=== PATIENT | male | born 1990 | race Hispanic/Latino ===

== ENCOUNTER 2017-07-09 15:43 | Emergency (ER) | payer OTHER ==
[2017-07-09] MEDS ORDERED: LIDOCAINE 1% 20 ML MDV ONE (17:35)
--- NOTE | 2017-07-09 17:52 | ER ---
Nurse's Notes [facility] Name: Clemente Ovalles Jr Age: 26 yrs Sex: Male : 1990 Arrival Date: 07/09/2017 Time: 15:49 Bed 9 Private MD: Diagnosis: Laceration without foreign body of forearm Presentation: 07/09 15:57 Presenting complaint: Patient states: Laceration to top of left forearm that occurred 1 aj hour [employer], no bleeding noted. Transition of care: patient was not received from another setting of care. Complicating Factors: There are no complicating factors for this patient. Onset of symptoms was July 09, 2017. Care prior to arrival: None. 15:57 Method Of Arrival: Ambulatory aj 15:57 Acuity: CORINE 4 aj 18:05 Initial Sepsis Screen: Does the patient meet any 2 criteria? No. Patient's initial iw sepsis screen is negative. Does the patient have a suspected source of infection? No. Patient's initial sepsis screen is negative. Triage Assessment: 15:58 General: Appears in no apparent distress. comfortable, Behavior is calm, cooperative, aj appropriate for age. Pain: Denies pain. Neuro: Level of Consciousness is awake, alert, obeys commands, Oriented to person, place, time, situation, Appropriate for age. Respiratory: Airway is patent Respiratory effort is even, unlabored, Respiratory pattern is regular, symmetrical. Derm: Skin is intact, is healthy with good turgor, Skin is pink, warm \T\ dry. normal. Injury Description: Laceration sustained to dorsal aspect of left forearm is clean, 0.5 to 2.5 cm long, not bleeding. Historical: - Allergies: 15:58 No Known Allergies; aj - Home Meds: 15:58 None [Active]; aj - PMHx: 15:58 None; aj - PSHx: 15:58 None; aj - Immunization history:: Adult Immunizations unknown, Last tetanus immunization: unknown. - Social history:: Smoking status: Patient uses tobacco products, smokes one-half pack cigarettes per day. Screenin:02 Abuse screen: Denies threats or abuse. Denies injuries from another. Nutritional iw screening: No deficits noted. Tuberculosis screening: No symptoms or risk factors identified. Fall Risk None identified. Assessment: 17:40 General: Appears in no apparent distress. comfortable. Pain: Complains of pain in iw dorsal aspect of left forearm. Neuro: Level of Consciousness is awake, alert, obeys commands. Musculoskeletal: Range of motion: intact in all extremities. Injury Description: Laceration sustained to dorsal aspect of left forearm is jagged, 0.5 to 2.5 cm long. Vital Signs: 15:58 BP 136 / 81; Pulse 96; Resp 16; Temp 97.6; Pulse Ox 97% on R/A; Weight 165.56 kg; aj Height 5 ft. 11 in. (180.34 cm); 15:58 Body Mass Index 50.91 (165.56 kg, 180.34 cm) aj ED Course: 15:49 Patient arrived in ED. mr 15:57 Triage completed. aj 15:58 Arm band placed on right wrist. Patient placed in waiting room, Patient notified of aj wait time. 17:19 Cornelius Garber PA is PHCP. jrEdenilson 17:19 Narendra Lozoya MD is Attending Physician. jr8 17:45 Assist provider with laceration repair on dorsal aspect of left forearm that was 2.5 iw cm. or less using sutures. Set up tray. Performed by Cornelius SIMONS. Patient did not have IV access during this emergency room visit. 17:49 Kristina Obrien, IGNACIA is Primary Nurse. iw 18:05 Patient has correct armband on for positive identification. iw Administered Medications: No medications were administered Outcome: 17:52 Discharge ordered by . jrEdenilson 18:03 Discharged to home ambulatory, with friend. iw 18:03 Condition: good 18:03 Discharge instructions given to patient, Instructed on discharge instructions, follow up and referral plans. wound care, Demonstrated understanding of instructions, follow-up care, wound care. 18:05 Patient left the ED. iw Signatures: Lucia Ybarra, RN Adelina Viveros mr Kristina Obrien, Cornelius Blum RN, PA PA jr8 Corrections: (The following items were deleted from the chart) 16:04 15:54 Patient's name was called from ER lobby. No response. aj kelly
--- NOTE | 2017-07-09 17:52 | EDPHYS ---
Physician Documentation [facility] Name: Clemente Ovalles Jr Age: 26 yrs Sex: Male : 1990 Arrival Date: 07/09/2017 Time: 15:49 Bed 9 Private MD: ED Physician Narendra Lozoya HPI: 07/09 17:47 This 26 yrs old Male presents to ER via Ambulatory with complaints of jr8 Laceration To Arm. 17:47 The patient has a laceration related to: working, from a sharp metal object, occurred jr8 at work, and there are no complicating factors. The laceration(s) is(are) located on the dorsal aspect of left forearm. Onset: The symptoms/episode began/occurred acutely, today. Associated signs and symptoms: The patient has no apparent associated signs or symptoms. The patient has not experienced similar symptoms in the past. The patient has not recently seen a physician. Historical: - Allergies: 15:58 No Known Allergies; aj - Home Meds: 15:58 None [Active]; aj - PMHx: 15:58 None; aj - PSHx: 15:58 None; aj - Immunization history:: Adult Immunizations unknown, Last tetanus immunization: unknown. - Social history:: Smoking status: Patient uses tobacco products, smokes one-half pack cigarettes per day. ROS: 17:47 Eyes: Negative for injury, pain, redness, and discharge, ENT: Negative for injury, jr8 pain, and discharge, Neck: Negative for injury, pain, and swelling, Cardiovascular: Negative for chest pain, palpitations, and edema, Respiratory: Negative for shortness of breath, cough, wheezing, and pleuritic chest pain, Abdomen/GI: Negative for abdominal pain, nausea, vomiting, diarrhea, and constipation, Back: Negative for injury and pain, MS/Extremity: Negative for injury and deformity, Neuro: Negative for headache, weakness, numbness, tingling, and seizure. 17:47 Skin: Positive for laceration(s), of the dorsal aspect of left forearm. Exam: 17:47 Eyes: Pupils equal round and reactive to light, extra-ocular motions intact. Lids and jr8 lashes normal. Conjunctiva and sclera are non-icteric and not injected. Cornea within normal limits. Periorbital areas with no swelling, redness, or edema. ENT: Nares patent. No nasal discharge, no septal abnormalities noted. Tympanic membranes are normal and external auditory canals are clear. Oropharynx with no redness, swelling, or masses, exudates, or evidence of obstruction, uvula midline. Mucous membranes moist. Neck: Trachea midline, no thyromegaly or masses palpated, and no cervical lymphadenopathy. Supple, full range of motion without nuchal rigidity, or vertebral point tenderness. No Meningismus. Cardiovascular: Regular rate and rhythm with a normal S1 and S2. No gallops, murmurs, or rubs. Normal PMI, no JVD. No pulse deficits. Respiratory: Lungs have equal breath sounds bilaterally, clear to auscultation and percussion. No rales, rhonchi or wheezes noted. No increased work of breathing, no retractions or nasal flaring. Abdomen/GI: Soft, non-tender, with normal bowel sounds. No distension or tympany. No guarding or rebound. No evidence of tenderness throughout. Back: No spinal tenderness. No costovertebral tenderness. Full range of motion. MS/ Extremity: Pulses equal, no cyanosis. Neurovascular intact. Full, normal range of motion. Neuro: Awake and alert, GCS 15, oriented to person, place, time, and situation. Cranial nerves II-XII grossly intact. Motor strength 5/5 in all extremities. Sensory grossly intact. Cerebellar exam normal. Normal gait. 17:47 Skin: injury, laceration(s), the wound is approximately 2.5 cm(s), with a depth of .5 cm(s), of the dorsal aspect of left forearm, that can be described as no foreign body, linear, with mild bleeding. Vital Signs: 15:58 BP 136 / 81; Pulse 96; Resp 16; Temp 97.6; Pulse Ox 97% on R/A; Weight 165.56 kg; aj Height 5 ft. 11 in. (180.34 cm); 15:58 Body Mass Index 50.91 (165.56 kg, 180.34 cm) aj Laceration: 17:47 Wound Repair of 2.5cm ( 1.0in ) subcutaneous laceration to dorsal aspect of left jr8 forearm. Linear shaped.. Minimal bleeding noted.. Distal neuro/vascular/tendon intact. Anesthesia: Local anesthetic administered with 3 mls of 1% lidocaine. Wound prep: Extensive cleansing with betadine, Wound explored extensively. Skin closed with 3 4-0 Prolene using interrupted sutures and sterile technique. Patient tolerated well. MDM: 17:19 Patient medically screened. jr8 17:47 Data reviewed: vital signs, nurses notes, and as a result, I will discharge patient. jr8 Data interpreted: Pulse oximetry: on room air is 97 %. Interpretation: normal. Counseling: I had a detailed discussion with the patient and/or guardian regarding: the historical points, exam findings, and any diagnostic results supporting the discharge/admit diagnosis, the need for outpatient follow up, a family practitioner, to return to the emergency department if symptoms worsen or persist or if there are any questions or concerns that arise at home. Administered Medications: No medications were administered Disposition: 18:39 Co-signature as Attending Physician, Narendra Lozoya MD. rn Disposition: 07/09/17 17:52 Discharged to Home. Impression: Laceration without foreign body of forearm. - Condition is Stable. - Discharge Instructions: Laceration Care, Adult. - Work release form, Medication Reconciliation Form, Thank You Letter, Antibiotic Education, Prescription Opioid Use form. - Follow up: Private Physician; When: 7 - 10 days; Reason: Wound Recheck, Recheck today's complaints, Continuance of care, Staple/Suture removal, Re-evaluation by your physician. - Problem is new. - Symptoms have improved. Signatures: Lucia Ybarra RN RN aj Williams, Irene, RN RN iw Nieto, Roman, MD MD rn Roszak, Josh, PA PA jr8 Corrections: (The following items were deleted from the chart) 18:05 17:52 07/09/2017 17:52 Discharged to Home. Impression: Laceration without foreign body iw of forearm. Condition is Stable. Forms are Medication Reconciliation Form, Thank You Letter, Antibiotic Education, Prescription Opioid Use. Follow up: Private Physician; When: 7 - 10 days; Reason: Wound Recheck, Recheck today's complaints, Continuance of care, Staple/Suture removal, Re-evaluation by your physician. Problem is new. Symptoms have improved. jr8
[2017-07-09] MEDS ORDERED: TETANUS & DIPHTHERIA TOX,ADULT 0.5 ML VIAL ONE (17:54)
== END 2017-07-09 18:05 | disposition home or self-care (01) ==
LOC: ER 15:43
PROC: 0JQH0ZZ Repair Left Lower Arm Subcutaneous Tissue and Fascia, Open Approach (ICD-10-PCS; principal; 2017-07-09)
DX: S51.812A Laceration without foreign body of left forearm, initial encounter (principal); W26.8XXA Contact with other sharp object(s), not elsewhere classified, initial encounter; Y93.89 Activity, other specified; Y92.89 Other specified places as the place of occurrence of the external cause; Y99.8 Other external cause status; F17.210 Nicotine dependence, cigarettes, uncomplicated
CPT/HCPCS: 90714; 99283

== ENCOUNTER 2017-07-16 07:04 | Emergency (ER) | payer OTHER ==
--- NOTE | 2017-07-16 07:32 | ER ---
Nurse's Notes [facility] Name: Clemente Ovalles Jr Age: 26 yrs Sex: Male : 1990 Arrival Date: 07/16/2017 Time: 07:08 Bed 5 Private MD: None, None Diagnosis: Encounter for removal of sutures Presentation: 07/16 07:10 Presenting complaint: Patient states: need for suture removal. Pt states "I got sutures aa5 here last ". Sutures noted to left FA. Transition of care: patient was not received from another setting of care. Onset of symptoms was July 16, 2017. Risk Assessment: Do you want to hurt yourself or someone else? Patient reports no desire to harm self or others. Initial Sepsis Screen: Does the patient meet any 2 criteria? No. Patient's initial sepsis screen is negative. Does the patient have a suspected source of infection? No. Patient's initial sepsis screen is negative. Care prior to arrival: None. 07:10 Method Of Arrival: Ambulatory aa5 07:10 Acuity: CORINE 4 aa5 Historical: - Allergies: 07:10 No Known Allergies; aa5 - PMHx: 07:10 None; aa5 - PSHx: 07:14 None; aa5 - Immunization history:: Adult Immunizations unknown. - Social history:: Smoking status: Patient uses tobacco products, smokes one-half pack cigarettes per day. - Ebola Screening: : No symptoms or risks identified at this time. Screenin:15 Abuse screen: Denies threats or abuse. Nutritional screening: No deficits noted. tw2 Tuberculosis screening: No symptoms or risk factors identified. Fall Risk None identified. Assessment: 07:14 General: Appears in no apparent distress. obese, Behavior is calm, cooperative, tw2 appropriate for age. Pain: Denies pain. Neuro: Level of Consciousness is awake, alert, obeys commands, Oriented to person, place, time, situation. Cardiovascular: Denies chest pain, shortness of breath, Capillary refill < 3 seconds Patient's skin is warm and dry. Respiratory: Airway is patent Respiratory effort is even, unlabored, Respiratory pattern is regular, symmetrical. GI: No signs and/or symptoms were reported involving the gastrointestinal system. : No signs and/or symptoms were reported regarding the genitourinary system. EENT: No signs and/or symptoms were reported regarding the EENT system. Derm: sutures to left FA, no S\\T\\S of infection. Musculoskeletal: Range of motion: intact in all extremities. 07:36 Reassessment: Patient appears in no apparent distress at this time. No changes from tw2 previously documented assessment. Patient and/or family updated on plan of care and expected duration. Pain level reassessed. Patient is alert, oriented x 3, equal unlabored respirations, skin warm/dry/pink. Vital Signs: 07:13 BP 115 / 65; Pulse 91; Resp 17; Temp 97.2; Pulse Ox 99% on R/A; tw2 ED Course: 07:08 Patient arrived in ED. mr 07:08 None, None is Private Physician. mr 07:10 Arm band placed on Patient placed in an exam room, on a stretcher. aa5 07:12 Triage completed. aa5 07:13 Vaishali Woodard, IGNACIA is Primary Nurse. tw2 07:15 Bed in low position. Pulse ox on. NIBP on. tw2 07:15 suture removal tray at bedside. Patient did not have IV access during this emergency tw2 room visit. 07:19 Mustapha Mishra MD is Attending Physician. kdr 07:25 Cornelius Garber PA is PHCP. jr8 19:36 Primary Nurse role handed off by Vaishali Woodard RN tw2 Administered Medications: No medications were administered Outcome: 07:32 Discharge ordered by . jr8 07:36 Discharged to home ambulatory. tw2 07:36 Condition: stable 07:36 Discharge instructions given to patient, Instructed on discharge instructions, follow up and referral plans. Demonstrated understanding of instructions, follow-up care. 07:36 Patient left the ED. tw2 Signatures: Mustapha Mishra MD MD kdr Rivera, Maria mr GonzalezFloridalma RN RN aa5 Cornelius Garber PA PA jr8 Vaishali Woodard RN RN tw2
--- NOTE | 2017-07-16 07:32 | EDPHYS ---
Physician Documentation [facility] Name: Clemente Ovalles Jr Age: 26 yrs Sex: Male : 1990 Arrival Date: 07/16/2017 Time: 07:08 Bed 5 Private MD: None, None ED Physician Mustapha Mishra HPI: 07/16 07:30 This 26 yrs old Male presents to ER via Ambulatory with complaints of Suture jr8 Removal. 07:30 The patient has sutures on the left arm. Previous treatment: The patient was initially jr8 treated 7 day(s) ago. Sutures/maxx progress: The patient has no c/o's. The wound is well-healing with no redness, swelling, discharge, or dehiscence reported. The patient has not experienced similar symptoms in the past. The patient has not recently seen a physician. Historical: - Allergies: 07:10 No Known Allergies; aa5 - PMHx: 07:10 None; aa5 - PSHx: 07:14 None; aa5 - Immunization history:: Adult Immunizations unknown. - Social history:: Smoking status: Patient uses tobacco products, smokes one-half pack cigarettes per day. - Ebola Screening: : No symptoms or risks identified at this time. ROS: 07:30 Eyes: Negative for injury, pain, redness, and discharge, ENT: Negative for injury, jr8 pain, and discharge, Neck: Negative for injury, pain, and swelling, Cardiovascular: Negative for chest pain, palpitations, and edema, Respiratory: Negative for shortness of breath, cough, wheezing, and pleuritic chest pain, Abdomen/GI: Negative for abdominal pain, nausea, vomiting, diarrhea, and constipation, Back: Negative for injury and pain, MS/Extremity: Negative for injury and deformity, Neuro: Negative for headache, weakness, numbness, tingling, and seizure. 07:30 Skin: Positive for sutured wound to left forearm . Exam: 07:30 Cardiovascular: Regular rate and rhythm with a normal S1 and S2. No gallops, murmurs, jr8 or rubs. Normal PMI, no JVD. No pulse deficits. Respiratory: Lungs have equal breath sounds bilaterally, clear to auscultation and percussion. No rales, rhonchi or wheezes noted. No increased work of breathing, no retractions or nasal flaring. MS/ Extremity: Pulses equal, no cyanosis. Neurovascular intact. Full, normal range of motion. Neuro: Awake and alert, GCS 15, oriented to person, place, time, and situation. Cranial nerves II-XII grossly intact. Motor strength 5/5 in all extremities. Sensory grossly intact. Cerebellar exam normal. Normal gait. 07:30 Skin: Wound recheck: Suture laceration closure: the wound is healing well, the edges are well approximated, no evidence of dehiscence, no drainage, no erythema, no swelling. Vital Signs: 07:13 BP 115 / 65; Pulse 91; Resp 17; Temp 97.2; Pulse Ox 99% on R/A; tw2 Procedures: 07:30 Suture/Staple removal: Removed 3 sutures, from left arm, site appears well healed, jr8 dressed with gauze bandage, Neosporin, Patient tolerated well. MDM: 07:25 Patient medically screened. jr8 07:30 Data reviewed: vital signs, nurses notes, and as a result, I will discharge patient. jr8 Data interpreted: Pulse oximetry: on room air is 99 %. Interpretation: normal. Counseling: I had a detailed discussion with the patient and/or guardian regarding: the historical points, exam findings, and any diagnostic results supporting the discharge/admit diagnosis, the need for outpatient follow up, a family practitioner, to return to the emergency department if symptoms worsen or persist or if there are any questions or concerns that arise at home. Administered Medications: No medications were administered Disposition: 07:46 Co-signature as Attending Physician, Mustapha Mishra MD I agree with the assessment and kdr plan of care. Disposition: 07/16/17 07:32 Discharged to Home. Impression: Encounter for removal of sutures. - Condition is Stable. - Discharge Instructions: Suture Removal, Care After. - Work release form, Medication Reconciliation Form, Thank You Letter, Antibiotic Education, Prescription Opioid Use form. - Follow up: Private Physician; When: As needed; Reason: Wound Recheck, Recheck today's complaints, Continuance of care, Re-evaluation by your physician. - Problem is new. - Symptoms have improved. Signatures: Mustapha Mishra MD MD [facility] Floridalma Gonzalez RN RN aa5 Cornelius Garber PA PA jr8 Woodard, Vaishali, RN RN tw2 Corrections: (The following items were deleted from the chart) 07:36 07:32 07/16/2017 07:32 Discharged to Home. Impression: Encounter for removal of tw2 sutures. Condition is Stable. Forms are Work release form, Medication Reconciliation Form, Thank You Letter, Antibiotic Education, Prescription Opioid Use. Follow up: Private Physician; When: As needed; Reason: Wound Recheck, Recheck today's complaints, Continuance of care, Re-evaluation by your physician. Problem is new. Symptoms have improved. jr8
== END 2017-07-16 07:36 | disposition home or self-care (01) ==
LOC: ER 07:04
DX: Z48.02 Encounter for removal of sutures (principal); F17.210 Nicotine dependence, cigarettes, uncomplicated
CPT/HCPCS: 99283